=== PATIENT | female | born 1990 ===

== ENCOUNTER 2019-03-15 10:03 | Inpatient (IN) ==
[2019-03-15] MEDS ORDERED: LACTATED RINGERS 1,000 ML IV SCH (12:15)
[2019-03-15] MEDS ORDERED: ONDANSETRON 4 MG/2 ML VIAL IV PRN ×2 (12:22→15:18)
[2019-03-15] MEDS ORDERED: MEPERIDINE 50 MG/1 ML VIAL IV PRN (12:22)
[2019-03-15] MEDS ORDERED: OXYTOCIN/LR 20 UNIT/1,000 ML BAG IV SCH (12:30)
[2019-03-15 13:02] LABS: Basophils % 0.2 % (0.0-0.8); Eosinophils # 0.2 10*3/uL (0.0-0.87); Eosinophils % 1.7 % (0.00-10.9); Hematocrit 34.2 VOL% (35.7-47.0); Immature Granulocytes % 0.9 %; Immature Granulocytes Absolute 0.08 #; Lymphocytes # 1.4 10*3/uL (1.4-4.0); Lymphocytes % 15.5 % (21.3-54.2); Mean Corpuscular HGB Conc 32.2 GM/DL (32-36); Mean Corpuscular Volume 86.6 FL (87-102); Mean Platelet Volume 10.4 FL (9.6-12.0); Monocytes % 7.5 % (1.7-12.7); Neutrophils % 74.2 % (38.7-73.9); Platelet Count 371 T/CUMM (130-400); Red Blood Count 3.95 MC/CUMM (3.8-5.5); Red Cell Distribution Width 13.4 % (9.3-17.3)
[2019-03-15] MEDS ORDERED: AMPICILLIN INJ 2,000 MG in SODIUM CHLORIDE 0.9% 100 ML IV ONE (13:02)
[2019-03-15 13:09] LABS: Alanine Aminotransferase 10 U/L (13-56); Albumin 2.6 G/DL (3.4-5.0); Alkaline Phosphatase 192 U/L (45-117); Aspartate Amino Transferase 10 U/L (0-37); Bilirubin,Total < 0.39 MG/DL (0.2-1.0); Blood Urea Nitrogen 7 MG/DL (7-18); Calcium 8.6 MG/DL (8.5-10.1); Glucose 72 MG/DL (74-106); Osmolality,Calculated 275.4 MOS/KG (273-304); Total Protein 6.7 G/DL (6.4-8.3)
[2019-03-15] MEDS ORDERED: BUTORPHANOL 2 MG/ML VIAL ONE (13:53)
[2019-03-15] MEDS ORDERED: BUTORPHANOL 2 MG/ML VIAL IV PRN (13:54)
[2019-03-15] MEDS ORDERED: TRANEXAMIC ACID 1,000 MG/10 ML VIAL ONE (14:19)
[2019-03-15] MEDS ORDERED: miSOPROStol 200 MCG TABLET ONE (14:19)
[2019-03-15] MEDS ORDERED: OXYTOCIN/LR 20 UNIT/1,000 ML BAG IV ONE ×2 (14:19→15:18)
[2019-03-15] MEDS ORDERED: METHYLERGONOVINE 0.2 MG/1 ML AMP ONE (14:19)
[2019-03-15] MEDS ORDERED: CARBOPROST TROMETHAMINE 250 MCG/ML AMP IM ONE (14:20)
[2019-03-15] MEDS ORDERED: OXYTOCIN/LR 30 UNIT/1,000 ML BAG IV ONE (14:28)
[2019-03-15 15:02] LABS: Cord Venous Blood HCO3 20.6 MMOL/L; Cord Venous Blood PCO2 38.3 MMHG; Cord Venous Blood PO2 34.4
[2019-03-15] MEDS ORDERED: RHO(D) IMMUNE GLOBULIN 300 MCG SYRINGE IM ONE (15:18)
[2019-03-15] MEDS ORDERED: BISACODYL 10 MG SUPP RECTAL PRN (15:18)
[2019-03-15] MEDS ORDERED: WITCH HAZEL PADS 100/JAR TOP PRN (15:18)
[2019-03-15] MEDS ORDERED: oxyCODONE/ACETAMINOPHEN 5-325 MG TABLET PO PRN (15:18)
[2019-03-15] MEDS ORDERED: BENZOCAINE 20%/MENTHOL 0.5% SPRAY 56 GM CAN TOP PRN (15:18)
[2019-03-15] MEDS ORDERED: DIPH/TET/ACEL PERT BOOSTER VACCINE 0.5 ML VIAL IM ONE (15:18)
[2019-03-15] MEDS ORDERED: LANOLIN 50% CREAM 0.3 OZ TUBE TOP PRN (15:18)
[2019-03-15] MEDS ORDERED: HYDROCORTISONE 2.5% RECTAL CREAM 30 GM TUBE TOP PRN (15:18)
[2019-03-15] MEDS ORDERED: MEASLES/MUMPS/RUBELLA VACCINE 0.5 ML VIAL SUBCUT ONE (15:18)
[2019-03-15] MEDS ORDERED: ACETAMINOPHEN 325 MG TABLET PO PRN (15:18)
[2019-03-15] MEDS: IBUPROFEN 800 MG TABLET PO PRN (17:18)
[2019-03-15] MEDS: DOCUSATE SODIUM 100 MG CAPSULE PO SCH (20:49)
[2019-03-15] MEDS: oxyCODONE/ACETAMINOPHEN 5-325 MG TABLET PO PRN (21:51)
[2019-03-16 02:03] LABS: Basophils % 0.1 % (0.0-0.8); Eosinophils # 0.2 10*3/uL (0.0-0.87); Eosinophils % 1.8 % (0.00-10.9); Hematocrit 29.2 VOL% (35.7-47.0); Hemoglobin 9.1 GM/DL (12.0-16.0); Immature Granulocytes % 0.6 %; Immature Granulocytes Absolute 0.05 #; Lymphocytes # 1.8 10*3/uL (1.4-4.0); Lymphocytes % 21.4 % (21.3-54.2); Mean Corpuscular HGB Conc 31.2 GM/DL (32-36); Mean Corpuscular Volume 86.1 FL (87-102); Mean Platelet Volume 9.8 FL (9.6-12.0); Monocytes % 6.1 % (1.7-12.7); Platelet Count 272 T/CUMM (130-400); Red Blood Count 3.39 MC/CUMM (3.8-5.5); Red Cell Distribution Width 13.4 % (9.3-17.3); White Blood Count 8.2 T/CUMM (4-12)
[2019-03-16] MEDS: IBUPROFEN 800 MG TABLET PO PRN ×3 (09:02→21:04)
[2019-03-16] MEDS: DOCUSATE SODIUM 100 MG CAPSULE PO SCH ×2 (09:02→21:02)
[2019-03-16] MEDS: oxyCODONE/ACETAMINOPHEN 5-325 MG TABLET PO PRN (16:59)
[2019-03-17] MEDS: IBUPROFEN 800 MG TABLET PO PRN ×2 (03:25→10:07)
[2019-03-17] MEDS: oxyCODONE/ACETAMINOPHEN 5-325 MG TABLET PO PRN (06:28)
[2019-03-17 09:14] VITALS: BP 124/78
[2019-03-17] MEDS: DOCUSATE SODIUM 100 MG CAPSULE PO SCH (10:07)
== END 2019-03-17 14:29 | disposition home or self-care (01) | DRG 560 ==
LOC: N.LDOUT 10:03 → N.LD 10:06
PROVIDERS: ADMIT Obstetrics & Gynecology; ATTEND Obstetrics & Gynecology

== ENCOUNTER 2020-09-24 01:27 | Inpatient (IN) ==
[2020-09-24] MEDS ORDERED: ONDANSETRON 4 MG/2 ML VIAL IV PRN (01:58)
[2020-09-24] MEDS ORDERED: LACTATED RINGERS 1,000 ML IV SCH (02:00)
[2020-09-24] MEDS ORDERED: AMPICILLIN INJ 2,000 MG in SODIUM CHLORIDE 0.9% 100 ML IV ONE (02:02)
[2020-09-24] MEDS ORDERED: MEPERIDINE 50 MG/1 ML VIAL IV PRN (02:04)
[2020-09-24] MEDS ORDERED: SODIUM CHLORIDE 0.9% 0 ML IV ONE (02:10)
[2020-09-24] MEDS ORDERED: AMPICILLIN 2,000 MG VIAL ONE (02:10)
[2020-09-24] MEDS ORDERED: TRANEXAMIC ACID 1,000 MG/10 ML VIAL ONE (02:11)
[2020-09-24] MEDS ORDERED: miSOPROStoL 200 MCG TABLET ONE (02:11)
[2020-09-24] MEDS ORDERED: OXYTOCIN/LR 20 UNIT/1,000 ML BAG IV ONE ×2 (02:11→04:27)
[2020-09-24] MEDS ORDERED: LIDOCAINE 1% 50 ML VIAL ONE (02:12)
[2020-09-24] MEDS ORDERED: CARBOPROST TROMETHAMINE 250 MCG/ML AMP IM ONE (02:12)
[2020-09-24] MEDS ORDERED: SODIUM CHLORIDE 0.9% 100 ML IV ONE (02:12)
[2020-09-24] MEDS ORDERED: METHYLERGONOVINE 0.2 MG/1 ML AMP ONE (02:12)
[2020-09-24 02:24] LABS: Basophils % 0.2 % (0.0-0.8); Eosinophils # 0.2 10*3/uL (0.0-0.87); Eosinophils % 1.9 % (0.00-10.9); Hematocrit 35.7 VOL% (35.7-47.0); Hemoglobin 11.7 GM/DL (12.0-16.0); Immature Granulocytes % 0.5 %; Immature Granulocytes Absolute 0.04 #; Lymphocytes # 1.9 10*3/uL (1.4-4.0); Lymphocytes % 21.3 % (21.3-54.2); Mean Corpuscular HGB Conc 32.8 GM/DL (32-36); Mean Corpuscular Volume 83.4 FL (87-102); Mean Platelet Volume 9.6 FL (9.6-12.0); Monocytes % 6.2 % (1.7-12.7); Neutrophils % 69.9 % (38.7-73.9); Platelet Count 360 T/CUMM (130-400); Red Blood Count 4.28 MC/CUMM (3.8-5.5); Red Cell Distribution Width 15.1 % (9.3-17.3); White Blood Count 8.9 T/CUMM (4-12)
[2020-09-24 02:45] LABS: Barbiturates Screen,Urine Negative (Negative); Benzodiazepines Screen,Urine Negative (Negative); Cannabinoid Screen,Urine Negative (Negative); Opiate Screen,Urine Negative (Negative); Phencyclidine Screen,Urine Negative (Negative)
[2020-09-24 02:54] LABS: Bacteria,Urine Occasional /HPF (Few); Bilirubin,Urine Negative (Negative); Blood, Urine Small mg/dL (Negative); Glucose,Urine (UA) Negative (Negative); Ketones,Urine Negative (Negative); Nitrite,Urine Negative (Negative); Protein,Urine Negative; RBC,Urine 1 /HPF (0-4); Squamous Epithelial Cell,Urine Occasional /HPF (0-10); Urine Appearance CLEAR (Clear); Urine Color Straw (Yellow); Urine Specific Gravity 1.003 (1.001-1.035); Urine Urobilinogen < 2.0 EU/DL (0.2-1.0); WBC,Urine 1 /HPF (0-6)
[2020-09-24 02:55] LABS: Alanine Aminotransferase < 9 U/L (13-56); Albumin 2.4 G/DL (3.4-5.0); Alkaline Phosphatase 139 U/L (45-117); Aspartate Amino Transferase 10 U/L (0-37); Bilirubin,Total < 0.39 MG/DL (0.2-1.0); Blood Urea Nitrogen 7 MG/DL (7-18); Calcium 8.3 MG/DL (8.5-10.1); Estimated Glom Filtration Rate 141 ML/MIN; Glucose 97 MG/DL (74-106); Osmolality,Calculated 274.5 MOS/KG (273-304); Total Protein 6.9 G/DL (6.4-8.3)
[2020-09-24 03:28] LABS: Hepatitis B Surface Ag Quant < 0.10 Index; Hepatitis B Surface Ag Result Non-Reactive (NonReactive)
[2020-09-24 03:51] LABS: HIV Antigen/Antibody Result Nonreactive (Nonreactive); Rubella Antibody IgG Result Reactive (NonReactive)
[2020-09-24 04:21] LABS: Cord Venous Blood HCO3 21.6 MMOL/L; Cord Venous Blood PCO2 43.8 MMHG; Cord Venous Blood PO2 30.6 MMHG
[2020-09-24 04:25] LABS: Cord Arterial Blood HCO3 20.9 MMOL/L
[2020-09-24] MEDS: IBUPROFEN 800 MG TABLET PO PRN ×3 (06:22→21:10)
[2020-09-24] MEDS: MULTIVITAMIN (PRENATAL) TABLET PO SCH (10:15)
[2020-09-25 05:59] LABS: Basophils % 0.1 % (0.0-0.8); Eosinophils # 0.2 10*3/uL (0.0-0.87); Eosinophils % 2.7 % (0.00-10.9); Hematocrit 29.4 VOL% (35.7-47.0); Immature Granulocytes % 0.7 %; Immature Granulocytes Absolute 0.06 #; Lymphocytes # 2.2 10*3/uL (1.4-4.0); Lymphocytes % 26.7 % (21.3-54.2); Mean Corpuscular HGB Conc 32.7 GM/DL (32-36); Mean Corpuscular Volume 85.2 FL (87-102); Mean Platelet Volume 9.7 FL (9.6-12.0); Monocytes % 6.6 % (1.7-12.7); Neutrophils % 63.2 % (38.7-73.9); Red Blood Count 3.45 MC/CUMM (3.8-5.5); Red Cell Distribution Width 15.3 % (9.3-17.3); White Blood Count 8.2 T/CUMM (4-12)
[2020-09-25 06:00] LABS: Hemoglobin 9.6 GM/DL (12.0-16.0); Platelet Count 274 T/CUMM (130-400)
[2020-09-25 06:36] LABS: Hypochromasia 1+; Microcytosis 1+; Platelet Estimate Adequate
[2020-09-25] MEDS ORDERED: DOCUSATE SODIUM 100 MG CAPSULE PO SCH (09:00)
[2020-09-25] MEDS: MULTIVITAMIN (PRENATAL) TABLET PO SCH (09:32)
[2020-09-25] MEDS: IBUPROFEN 800 MG TABLET PO PRN (09:32)
[2020-09-25] MEDS ORDERED: BENZOCAINE 20%/MENTHOL 0.5% SPRAY 56 GM CAN TOP PRN (10:50)
[2020-09-25] MEDS ORDERED: BISACODYL 10 MG SUPP RECTAL PRN (10:50)
[2020-09-25] MEDS ORDERED: WITCH HAZEL PADS 100/JAR TOP PRN (10:50)
[2020-09-25] MEDS ORDERED: HYDROCORTISONE 2.5% RECTAL CREAM 30 GM TUBE TOP PRN (10:50)
[2020-09-25] MEDS ORDERED: LANOLIN 50% CREAM 0.3 OZ TUBE TOP PRN (10:50)
[2020-09-25] MEDS ORDERED: ACETAMINOPHEN 325 MG TABLET PO PRN (10:50)
[2020-09-25] MEDS ORDERED: DIPH/TET/ACEL PERT BOOSTER VACCINE 0.5 ML VIAL IM ONE (10:50)
[2020-09-25 11:37] VITALS: BP 119/63
[2020-09-25] MEDS ORDERED: INFLUENZA VIRUS VACCINE 0.5 ML SYRINGE IM ONE (12:56)
== END 2020-09-25 13:30 | disposition home or self-care (01) | DRG 807 ==
LOC: N.LDOUT 01:27 → N.LD 01:31 → N.OB 15:47
PROVIDERS: ADMIT Obstetrics & Gynecology; ATTEND Obstetrics & Gynecology